=== PATIENT | female | born 1965 | race Caucasian/White ===

== ENCOUNTER → 2016-11-25 | Outpatient (CLI) | payer BC ==
[~2016-11-25] MED LIST: ALPRAZOLAM0.25 MG PO; LAMICTAL 100MG100 MG PO; LOESTRIN 21 1.51 TAB PO; PRISTIQ100 MG PO; SYNTHROID0.075 MG PO
== END ==
LOC: MAMMO 14:29
DX: Z12.31 Encounter for screening mammogram for malignant neoplasm of breast (principal); R92.2 Inconclusive mammogram
CPT/HCPCS: G0202

== ENCOUNTER → 2016-12-03 | Outpatient (CLI) | payer BC | LOC: MAMMO 14:16 | DX: R92.2 Inconclusive mammogram (principal) ==

== ENCOUNTER → 2017-05-19 | Outpatient (CLI) | payer BC ==
[2012-09-11 17:58] VITALS: BP 108/63
== END ==
LOC: LAB 13:47
DX: Z00.00 Encounter for general adult medical examination without abnormal findings (principal)

== ENCOUNTER → 2018-04-05 | Outpatient (CLI) | payer BC ==
[2012-09-11 17:58] VITALS: BP 108/63
[2018-04-05 15:45] LABS: EOS # 0.1 (0.04-0.40); EOS % 1.1 % (1.0-5.0); HEMOGLOBIN 12.6 g/dL (12.5-16.0); LYMPH# 2.3 (1.50-4.00); MEAN CELL VOLUME 88 fl (78-100); MEAN CORPUSCULAR HEMOGLOBIN 28 pg (27-31); MEAN CORPUSCULAR HGB CONC 32 g/dL (33-37); MEAN PLATELET VOLUME 8.3 fl (7.4-10.4); MONO # 0.6 (0.20-0.80); NEU # 6.1 (1.40-6.50); PLATELET COUNT 374 K/mm3 (130-400); RED BLOOD COUNT 4.44 M/mm3 (4.10-5.30); RED CELL DISTRIBUTION WIDTH 13.3 % (11.5-14.5); WHITE BLOOD COUNT 9.2 K/mm3 (4.8-10.8)
[2018-04-05 18:30] LABS: ERYTHROCYTE SEDIMENTATION RATE 49 mm/hr (0-30)
[2018-04-05 23:49] LABS: ALBUMIN 4.1 g/dL (3.5-5.0); BUN/CREATININE RATIO 17.2 (6.0-26.0); CALCIUM 9.3 mg/dL (8.4-10.2); POTASSIUM 4.8 mmol/L (3.6-5.0); TOTAL BILIRUBIN 0.3 mg/dL (0.2-1.3); TOTAL PROTEIN 7.6 g/dL (6.3-8.2)
== END ==
LOC: LAB 15:01
PROVIDERS: Internal Medicine
DX: R19.7 Diarrhea, unspecified (principal); E61.1 Iron deficiency; K90.9 Intestinal malabsorption, unspecified; E03.9 Hypothyroidism, unspecified

== ENCOUNTER → 2018-07-19 | Outpatient (CLI) | payer BC ==
[2012-09-11 17:58] VITALS: BP 108/63
== END ==
LOC: LAB 17:28
PROVIDERS: Internal Medicine
DX: E61.1 Iron deficiency (principal); E03.9 Hypothyroidism, unspecified; K90.9 Intestinal malabsorption, unspecified

== ENCOUNTER → 2021-07-23 | Outpatient (CLI) | payer BC ==
[2021-07-23 09:15] LABS: BASO # 0.03 K/mm3 (0.02-0.10); EOS % 4.3 % (1.0-5.0); HEMATOCRIT 38.7 % (37.0-47.0); HEMOGLOBIN 12.3 g/dL (12.5-16.0); LYMPH# 1.67 K/mm3 (1.50-4.00); MEAN CELL VOLUME 90 fl (78-100); MEAN CORPUSCULAR HEMOGLOBIN 29 pg (27-31); MEAN CORPUSCULAR HGB CONC 32 g/dL (33-37); MEAN PLATELET VOLUME 8.4 fl (7.4-10.4); MONO # 0.41 K/mm3 (0.20-0.80); NEU # 4.62 K/mm3 (1.40-6.50); PLATELET COUNT 307 K/mm3 (130-400); RED BLOOD COUNT 4.31 M/mm3 (4.10-5.30); RED CELL DISTRIBUTION WIDTH 13.1 % (11.5-14.5)
[2021-07-23 09:23] LABS: POTASSIUM 4.1 mmol/L (3.5-5.1)
[2021-07-23 09:24] LABS: ALBUMIN 3.7 g/dL (3.5-5.0)
[2021-07-23 09:25] LABS: CALCIUM 9.1 mg/dL (8.3-10.5)
[2021-07-23 09:26] LABS: TOTAL PROTEIN 7.1 g/dL (6.4-8.3)
[2021-07-23 09:28] LABS: TOTAL BILIRUBIN 0.4 mg/dL (0.2-1.2)
[2021-07-23 09:57] LABS: PH-URINE 6.5 (5.0 - 8.0); URINE APPEARANCE HAZY; URINE BILIRUBIN NEGATIVE (NEGATIVE); URINE BLOOD NEGATIVE (NEGATIVE); URINE COLOR YELLOW; URINE GLUCOSE NEGATIVE (NEGATIVE); URINE KETONE NEGATIVE (NEGATIVE); URINE LEUKOCYTE ESTERASE NEGATIVE (NEGATIVE); URINE NITRATE NEGATIVE (NEGATIVE); URINE PROTEIN(semi-quant) TRACE mg/dL (NEGATIVE); URINE UROBILINOGEN NORMAL (NORMAL); URINE WBC 0-1 /hpf (0-3)
== END ==
LOC: LAB 08:36
PROVIDERS: Internal Medicine
DX: Z00.00 Encounter for general adult medical examination without abnormal findings (principal)

== ENCOUNTER → 2023-06-25 | Outpatient (CLI) | payer MEDICARE, BC ==
[~2023-06-25] MED LIST changes: +CEPHALEXIN500 M1 PO; +DESYREL50 MG PO; +MK-7180 MCG PO; +TUMERIC PO; +VENLAFAXINE HY150 MG PO; +VITAMIN D21250 MCG PO; +VITAMIN E1000 UNI1 PO; +WELLBUTRIN XL300 M1 PO; +[UNRECOGNIZED DRUG - OTHER] PO; +[UNRECOGNIZED DRUG - OTHER] PO
[2023-06-25 15:26] LABS: BASO # 0.02 K/mm3 (0.02-0.10); EOS % 3.3 % (1.0-5.0); HEMATOCRIT 42.2 % (37.0-47.0); HEMOGLOBIN 13.4 g/dL (12.5-16.0); LYMPH# 1.52 K/mm3 (1.50-4.00); MEAN CELL VOLUME 90 fl (78-100); MEAN CORPUSCULAR HEMOGLOBIN 29 pg (27-31); MEAN CORPUSCULAR HGB CONC 32 g/dL (33-37); MEAN PLATELET VOLUME 8.3 fl (7.4-10.4); NEU # 3.94 K/mm3 (1.40-6.50); PLATELET COUNT 344 K/mm3 (130-400); RED BLOOD COUNT 4.69 M/mm3 (4.10-5.30); RED CELL DISTRIBUTION WIDTH 12.5 % (11.5-14.5)
[2023-06-25 15:32] LABS: ALBUMIN 4.1 g/dL (3.5-5.0); POTASSIUM 4.3 mmol/L (3.5-5.1)
[2023-06-25 15:34] LABS: CALCIUM 9.5 mg/dL (8.3-10.5)
[2023-06-25 15:35] LABS: TOTAL PROTEIN 7.6 g/dL (6.4-8.3)
[2023-06-25 15:37] LABS: TOTAL BILIRUBIN 0.6 mg/dL (0.2-1.2)
[2023-06-25 16:30] LABS: ERYTHROCYTE SEDIMENTATION RATE 55 mm/hr (0-30)
== END ==
LOC: LAB 14:58
PROVIDERS: Internal Medicine
DX: Z00.00 Encounter for general adult medical examination without abnormal findings (principal); Z12.11 Encounter for screening for malignant neoplasm of colon; F33.2 Major depressive disorder, recurrent severe without psychotic features; E03.4 Atrophy of thyroid (acquired); K90.9 Intestinal malabsorption, unspecified; E78.2 Mixed hyperlipidemia; E55.9 Vitamin D deficiency, unspecified; E61.1 Iron deficiency; K52.9 Noninfective gastroenteritis and colitis, unspecified; R73.9 Hyperglycemia, unspecified

== ENCOUNTER → 2024-06-28 | Outpatient (CLI) | payer MEDICARE, BC | LOC: MAMMO 10:56 | DX: Z12.31 Encounter for screening mammogram for malignant neoplasm of breast (principal) ==

== ENCOUNTER → 2024-11-03 | Outpatient (CLI) | payer MEDICARE, BC ==
[2024-11-03 11:41] LABS: BASO # 0.01 K/mm3 (0.02-0.10); EOS # 0.09 K/mm3 (0.04-0.40); EOS % 1.2 % (1.0-5.0); HEMATOCRIT 42.4 % (37.0-47.0); HEMOGLOBIN 13.7 g/dL (12.5-16.0); LYMPH# 1.59 K/mm3 (1.50-4.00); MEAN CELL VOLUME 87 fl (78-100); MEAN CORPUSCULAR HEMOGLOBIN 28 pg (27-31); MEAN CORPUSCULAR HGB CONC 32 g/dL (33-37); MEAN PLATELET VOLUME 8.5 fl (7.4-10.4); NEU # 5.27 K/mm3 (1.40-6.50); PLATELET COUNT 320 K/mm3 (130-400); RED CELL DISTRIBUTION WIDTH 12.5 % (11.5-14.5); WHITE BLOOD COUNT 7.3 K/mm3 (4.8-10.8)
[2024-11-03 11:49] LABS: ALBUMIN 4.4 g/dL (3.5-5.0)
[2024-11-03 11:50] LABS: CALCIUM 9.9 mg/dL (8.3-10.5)
[2024-11-03 11:51] LABS: TOTAL PROTEIN 8.3 g/dL (6.4-8.3)
[2024-11-03 11:53] LABS: TOTAL BILIRUBIN 0.8 mg/dL (0.2-1.2)
[2024-11-03 11:58] LABS: MAGNESIUM 1.75 mg/dL (1.60-2.60)
[2024-11-03 23:53] LABS: INSULIN 10 uIU/mL (2-23)
== END ==
LOC: LAB 11:16
PROVIDERS: Physician Assistant
DX: Z00.00 Encounter for general adult medical examination without abnormal findings (principal); E78.2 Mixed hyperlipidemia; K52.9 Noninfective gastroenteritis and colitis, unspecified; E03.4 Atrophy of thyroid (acquired)